=== PATIENT | female | born 1980 | race Caucasian/White ===

== ENCOUNTER → 2020-08-10 10:44 | Outpatient (CLI) | payer OTHER, SELFPAY ==
--- NOTE | ~2020-08-10 | MM_ITS ---
EXAMINATION: MM screening parth BI w levar HISTORY: Screening mammogram; baseline examination. TECHNIQUE: Craniocaudal and mediolateral oblique 3-D tomosynthesis images were obtained and synthetic 2-D images were generated. Bilateral rotated lateral cc views. CAD analysis was submitted and interp reted. COMPARISON: No prior mammogram is available for comparison at this institution. BREAST PARENCHYMAL COMPOSITION: The breasts are heterogeneously dense, which may obscure small masses . FINDINGS: There are focal areas of asymmetry including right axillary tail on MLO view and posterior lateral left breast on craniocaudal and rotated lateral craniocaudal views. Bilateral diagnostic mamm ography is recommended, with ultrasound if required. IMPRESSION: 1. Bilateral mammographic asymmetries 2. Bilateral diagnostic mammography is recommended, with ultrasound if required BI-RADS Category 0: Incomplete: Needs additional imaging evaluation. Reviewed, dictated and finalized at location A. 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
== END ==
PROVIDERS: Visit Provider Obstetrics & Gynecology Gynecology
DX: Z12.31 Encounter for screening mammogram for malignant neoplasm of breast (principal); R92.8 Other abnormal and inconclusive findings on diagnostic imaging of breast
CPT/HCPCS: 77063; 77067

== ENCOUNTER → 2020-09-01 08:14 | Outpatient (CLI) | payer OTHER, SELFPAY ==
--- NOTE | ~2020-09-01 | MMUS_ITS ---
EXAMINATION: MM diagnostic mammo BI, US breast BI complete HISTORY: Follow-up bilateral breast asymmetries TECHNIQUE: Additional 3-D tomosynthesis images of the breasts were performed and synthetic 2-D images were generated. CAD analysis was submitted and interpreted. High resolution complete bilateral breas t ultrasound was performed. COMPARISON: 08/10/2020 BREAST PARENCHYMAL COMPOSITION: The breasts are extremely dense, which lowers the sensitivity of mamm ography. FINDINGS: MAMMOGRAPHIC FINDINGS: There are no discrete masses, calcifications or architectural distortion in either breast with spot c ompression or lateral views. There is dense fibroglandular tissue with areas of asymmetry. ULTRASOUND: Complete bilateral breast ultrasound: Normal heterogeneous echotexture without focal solid or cystic mass in either breast. IMPRESSION: 1. No mammographic or sonographic evidence for malignancy in either breast. 2. Routine yearly screening mammogram and regular clinical breast examination are recommended. BI-RADS Category 1: Negative Reviewed, dictated and finalized at location A. 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 No mammographic or sonographic evidence for malignancy in either breast. 2. Routine yearly screening mammogram and regular clinical breast examination a re recommended. BI-RADS Category 1: Negative
== END ==
PROVIDERS: Visit Provider Obstetrics & Gynecology Gynecology
DX: R92.8 Other abnormal and inconclusive findings on diagnostic imaging of breast (principal)
CPT/HCPCS: 76641; 77066

== ENCOUNTER → 2021-08-13 10:06 | Outpatient (CLI) | payer OTHER, SELFPAY ==
--- NOTE | ~2021-08-13 | MM_ITS ---
EXAMINATION: MM screening parth BI w levar HISTORY: Screening TECHNIQUE: Craniocaudal and mediolateral oblique 3-D tomosynthesis images were obtained and synthetic 2-D images were generated. CAD analysis was submitted and interpreted. COMPARISON: 08/10/2020 BREAST PARENCHYMAL COMPOSITION: The breasts are heterogeneously dense, which may obscure small masses . FINDINGS: There is no evidence of suspicious mass, calcification, or architectural distortion to sugg est malignancy in either breast. There has been no suspicious interval change. IMPRESSION: 1. No mammographic evidence of malignancy. 2. Recommend routine screening mammography in one year. BI-RADS Category 1: Negative Reviewed, dictated and finalized at location A. 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
== END ==
PROVIDERS: Visit Provider Obstetrics & Gynecology Gynecology
DX: Z12.31 Encounter for screening mammogram for malignant neoplasm of breast (principal)
CPT/HCPCS: 77063; 77067

== ENCOUNTER → 2022-08-24 11:08 | Outpatient (CLI) | payer OTHER, SELFPAY ==
--- NOTE | ~2022-08-24 | MM_ITS ---
EXAMINATION: MM screening parth BI w levar HISTORY: Screening mammogram TECHNIQUE: Craniocaudal and mediolateral oblique 3-D tomosynthesis images were obtained and synthetic 2-D images were generated. Bilateral rotated lateral CC views. CAD analysis was submitted and interp reted. COMPARISON: August 13, 2021 bilateral screening mammogram September 01, 2020 diagnostic bilateral mammogram and complete bilateral breast ultrasound examination August 10, 2020 bilateral screening mammogram BREAST PARENCHYMAL COMPOSITION: The breasts are heterogeneously dense, which may obscure small masses . FINDINGS: Right breast: There is no evidence of suspicious mass, calcification, or architectural distortion to suggest malignancy in the right breast. There has been no suspicious interval change. Left breast: There is suggestion of some increased density in the upper right breast on MLO view sinc e August 10, 2020. Diagnostic left mammogram and left breast ultrasound examination are recommended . IMPRESSION: 1. Suggestion of increased density in upper right breast on MLO view since August 10, 2020 2. Diagnostic left mammogram and left breast ultrasound examination are recommended BI-RADS Category 0: Incomplete: Needs additional imaging evaluation. Reviewed, dictated and finalized at location A. ER PILE DRIVING IMPRESSION: 1. Suggestion of increased density in upper right breast on MLO view since 2020 2. Diagnostic left mammogram and left breast ultrasound examination are recomme nded BI-RADS Category 0: Incomplete: Needs additional imaging evaluation.
== END ==
PROVIDERS: PCP Obstetrics & Gynecology Gynecology; Visit Provider Obstetrics & Gynecology Gynecology
DX: Z12.31 Encounter for screening mammogram for malignant neoplasm of breast (principal); R92.8 Other abnormal and inconclusive findings on diagnostic imaging of breast
CPT/HCPCS: 77063; 77067

== ENCOUNTER → 2022-09-19 07:45 | Outpatient (CLI) | payer OTHER, SELFPAY ==
--- NOTE | ~2022-09-19 | MMUS_ITS ---
EXAMINATION: MM diagnostic parth LT w levar, US breast LT complete HISTORY: Follow-up left breast asymmetry TECHNIQUE: Additional 3-D tomosynthesis images of the left breast were performed and synthetic 2-D im ages were generated. CAD analysis was submitted and interpreted. High resolution complete left breast ultrasound was performed. COMPARISON: Comparison to multiple prior studies sequentially, with oldest reviewed study dated 08/10. BREAST PARENCHYMAL COMPOSITION: The breasts are extremely dense, which lowers the sensitivity of mamm ography FINDINGS: MAMMOGRAPHIC FINDINGS: There are no suspicious masses, calcifications or architectural distortion in the left breast to sugg est malignancy. ULTRASOUND: Complete US of all 4 quadrants of the left breast and retroareolar region was reviewed. Normal hetero geneous echotexture without focal solid or cystic mass. IMPRESSION: 1. No evidence for malignancy in the left breast. 2. Routine yearly screening mammogram and regular clinical breast examination are recommended. BI-RADS Category 1: Negative Reviewed, dictated and finalized at location A. IMPRESSION: 1. No evidence for malignancy in the left breast. 2. Routine yearly screening mammogram and regular clinical breast examination a re recommended. BI-RADS Category 1: Negative
== END ==
PROVIDERS: PCP Family Medicine; Visit Provider Obstetrics & Gynecology Gynecology
DX: R92.8 Other abnormal and inconclusive findings on diagnostic imaging of breast (principal)
CPT/HCPCS: 76641; 77061; 77065; G0279

== ENCOUNTER 2023-10-01 14:59 | Outpatient (CLI) | payer OTHER, SELFPAY ==
--- NOTE | ~2023-10-01 | MM_ITS ---
EXAMINATION: MM screening parth BI w levar HISTORY: Screening TECHNIQUE: Craniocaudal and mediolateral oblique 3-D tomosynthesis images were obtained and synthetic 2-D images were generated. CAD analysis was submitted and interpreted. COMPARISON: No prior mammogram is available for comparison at this institution. Comparison to multipl e prior studies sequentially, with oldest reviewed study dated 08/13/2021. BREAST PARENCHYMAL COMPOSITION: Not dense: There are scattered areas of fibroglandular density. FINDINGS: There is no evidence of suspicious mass, calcification, or architectural distortion to sugg est malignancy in either breast. There has been no suspicious interval change. IMPRESSION: 1. No mammographic evidence of malignancy. 2. Recommend routine screening mammography in one year. BI-RADS Category 1: Negative Reviewed, dictated and finalized at location A.
== END 2023-10-01 15:00 ==
LOC: MICIMG 14:59
PROVIDERS: PCP Obstetrics & Gynecology Gynecology; Visit Provider Obstetrics & Gynecology Gynecology
DX: Z12.31 Encounter for screening mammogram for malignant neoplasm of breast (principal)
CPT/HCPCS: 77063; 77067

== ENCOUNTER 2024-10-04 07:20 | Outpatient (CLI) | payer OTHER, SELFPAY ==
--- NOTE | ~2024-10-04 | MM_ITS ---
EXAMINATION: MM screening parth BI w levar HISTORY: Screening TECHNIQUE: Craniocaudal and mediolateral oblique 3-D tomosynthesis images were obtained and synthetic 2-D images were generated. CAD analysis was submitted and interpreted. COMPARISON: Comparison to multiple prior studies sequentially, with oldest reviewed study dated 08/10. BREAST PARENCHYMAL COMPOSITION: Dense: The breasts are extremely dense, which lowers the sensitivity of mammography. FINDINGS: There is no evidence of suspicious mass, calcification, or architectural distortion to sugg est malignancy in either breast. There has been no suspicious interval change. IMPRESSION: 1. No mammographic evidence of malignancy. 2. Recommend routine screening mammography in one year. BI-RADS Category 1: Negative Reviewed, dictated and finalized at location A.
== END 2024-10-04 07:21 | disposition home or self-care (01) ==
PROVIDERS: PCP Obstetrics & Gynecology Gynecology; Visit Provider Obstetrics & Gynecology Gynecology
DX: Z12.31 Encounter for screening mammogram for malignant neoplasm of breast (principal)
CPT/HCPCS: 77063; 77067